=== PATIENT | female | born 1990 ===

== ENCOUNTER 2017-02-17 17:00 | Emergency (ER) | payer BC, OTHER ==
[2017-02-17] MEDS ORDERED: HYDROmorphone 1 MG/ML Syringe IVPUSH ONE (17:54)
[2017-02-17] MEDS ORDERED: Sodium Chloride 0.9% 10 ML Syringe FLUSH PRN (17:54)
[2017-02-17] MEDS ORDERED: Ondansetron 4 MG/2 ML SDV IV ONE (17:55)
[2017-02-17 18:01] VITALS: BP 126/86
[2017-02-17] MEDS ORDERED: Lidocaine 1% 30 ML SDV INJECT ONE (18:08)
--- NOTE | 2017-02-17 19:10 | EDM.PDOC ---
Scribed by Debra Lagos 02/17/17 1903 for Jax Lujan PA ED HPI GENERAL MEDICAL PROBLEM - General Chief Complaint: Upper Extremity Injury/Pain Stated Complaint: POSS BROKEN THUMB, [id number] Time Seen by Provider: 02/17/17 17:50 Source of Information: Reports: Patient, RN, RN Notes Reviewed History Limitations: Reports: No Limitations - History of Present Illness INITIAL COMMENTS - FREE TEXT/NARRATIVE: This 26 yo female patient reports to the ED with left thumb pain and deformity. The patient reports she was tubing and wiped out. When she fell from the tube, she noticed pain in her left thumb and deformity. The patient has a history of Leukemia. Onset: Today Onset Date: 02/17/17 Onset Time: 18:00 Duration: Constant Location: Reports: Upper Extremity, Left Quality: Reports: Ache, Sharp, Throbbing Severity: Moderate Improves with: Reports: None Worsens with: Reports: None Associated Symptoms: Reports: No Other Symptoms Left Hand Pain Score (Numeric/FACES): 10 - Related Data Allergies Allergy/AdvReac Type Severity Reaction Status Date / Time sulfamethoxazole Allergy Other Verified 02/17/17 17:53 [From Bactrim] trimethoprim [From Bactrim] Allergy Other Verified 02/17/17 17:53 Home Meds: Home Meds Imatinib Mesylate [Gleevec] 400 mg PO 02/17/17 [History] Ondansetron [Zofran ODT] 4 mg PO Q8H 02/17/17 [History] Review of Systems - Review of Systems Review Of Systems: ROS reveals no pertinent complaints other than HPI. ED EXAM, GENERAL - Physical Exam Exam: See Below Exam Limited By: No Limitations General Appearance: Alert, Moderate Distress Eye Exam: Bilateral Eye: EOMI, Normal Inspection, PERRL Ears: Normal External Exam, Normal Canal, Hearing Grossly Normal, Normal TMs Nose: Normal Inspection, Normal Mucosa, No Blood Throat/Mouth: Normal Inspection, Normal Lips, Normal Teeth, Normal Gums, Normal Oropharynx, Normal Voice, No Airway Compromise Head: Atraumatic, Normocephalic Neck: Normal Inspection, Supple, Non-Tender, Full Range of Motion Respiratory/Chest: No Respiratory Distress, Lungs Clear, Normal Breath Sounds, No Accessory Muscle Use, Chest Non-Tender Cardiovascular: Normal Peripheral Pulses, Regular Rate, Rhythm, No Edema, No Gallop, No JVD, No Murmur, No Rub GI/Abdominal: Normal Bowel Sounds, Soft, Non-Tender, No Organomegaly, No Distention, No Abnormal Bruit, No Mass (Female) Exam: Deferred Rectal (Female) Exam: Deferred Back Exam: Normal Inspection, Full Range of Motion, NT Extremities: Arm Pain (left thumb pain and deformity. X-ray demonstrates a dislocation without fracture. ) Neurological: Alert, Oriented, CN II-XII Intact, Normal Cognition, Normal Gait, Normal Reflexes, No Motor/Sensory Deficits Psychiatric: Normal Affect, Normal Mood Skin Exam: Warm, Dry, Intact, Normal Color, No Rash Lymphatic: No Adenopathy ED TRAUMA EXTREMITY PROCEDURES - Joint Reduction Site: Finger (L) (Thumb) Sedation: Digital Block Local Anesthesia - Lidocaine (Xylocaine): 1% Plain Local Anesthetic Volume: 3cc Pre-Procedure NV Status: Normal Post-Procedure NV Status: Normal Technique: Traction/Counter Traction Number of Attempts: 2 Post-Reduction Imaging: Completely Reduced Joint Reduction Complications: No Course - Vital Signs Last Recorded V/S: Last Vital Signs Temp 37.1 C 02/17/17 17:56 Pulse 114 H 02/17/17 17:56 Resp 22 H 02/17/17 17:56 BP 126/86 02/17/17 17:56 Pulse Ox 100 02/17/17 17:56 - Orders/Labs/Meds Orders: Active Orders 24 hr Category Date Time Status Peripheral IV Care [RC] . DIRECTED Care 02/17/17 17:55 Active Splinting [RC] ASDIRECTED Care 02/17/17 18:08 Active Sodium Chloride 0.9% [Saline Flush] Med 02/17/17 17:54 Active 10 ml FLUSH ASDIRECTED PRN Peripheral IV Insertion Adult [OM.PC] Stat Oth 02/17/17 17:54 Ordered Medication Orders Sodium Chloride (Saline Flush) 10 ml FLUSH ASDIRECTED PRN PRN Reason: Keep Vein Open Last Admin: 02/17/17 18:06 Dose: 10 ml Meds: Medications Generic Name Dose Route Start Last Admin Trade Name Freq PRN Reason Stop Dose Admin Sodium Chloride 10 ml 02/17/17 17:54 02/17/17 18:06 Saline Flush FLUSH 10 ml ASDIRECTED PRN Administration Keep Vein Open Discontinued Medications Generic Name Dose Route Start Last Admin Trade Name Jhonatan PRN Reason Stop Dose Admin Hydromorphone HCl 1 mg 02/17/17 17:54 02/17/17 18:06 Dilaudid IVPUSH 02/17/17 17:55 1 mg ONETIME ONE Administration Lidocaine HCl 30 ml 02/17/17 18:08 02/17/17 18:31 Xylocaine-Mpf 1% INJECT 02/17/17 18:09 30 ml ONETIME ONE Administration Ondansetron HCl 4 mg 02/17/17 17:55 02/17/17 18:06 Zofran IV 02/17/17 17:56 4 mg ONETIME ONE Administration - Radiology Interpretation Free Text/Narrative:: X-ray finger: Per rad report reveals no fracture. Dislocated first metacarpal phalangela joint. Departure - Departure Time of Disposition: 19:09 Disposition: Home, Self-Care 01 Condition: Fair Clinical Impression: Dislocation of left thumb Qualifiers: Encounter type: initial encounter Qualified Code(s): S63.105A - Unspecified dislocation of left thumb, initial encounter - Discharge Information Instructions: Finger or Thumb Dislocation, [id number] Referrals: PCP,Not In Area [Primary Care Provider] - Care Plan Goals: The patient was advised of the examination and x-ray result during the visit. The patient was given pain medication and injected with Lidocaine for reduction. The reduction was completed without incident. The thumb was splinted after reduction. The patient was encouraged to wear the splint for the next 1-2 weeks. If the patient has any additional symptoms or concerns, the patient should follow-up with her primary care facility or return to the emergency department. I have read and agree with the documentation that has been completed regarding this visit. By signing this record, I attest that the documentation was completed in my physical presence and is an accurate record of the encounter.
== END 2017-02-17 19:13 | disposition home or self-care (01) ==
LOC: DL.ED 17:00
DX: S63.115A Dislocation of metacarpophalangeal joint of left thumb, initial encounter (principal); Z88.1 Allergy status to other antibiotic agents; Z88.2 Allergy status to sulfonamides; W19.XXXA Unspecified fall, initial encounter
CPT/HCPCS: 26700; 73140; 99283; J1170; J2405; J7050